=== PATIENT | female | born 1965 | race Caucasian/White ===

== ENCOUNTER 2017-02-09 07:59 | Emergency (ER) | payer MEDICAID ==
[~2017-02-09] VITALS: Ht 167.6 cm; Wt 77.0 kg
[2017-02-09 08:01] VITALS: BP 113/60
[2017-02-09] MEDS: PERMETHRIN 5% CREAM 60GM TOP ONE (10:33)
== END 2017-02-09 10:34 | disposition home or self-care (01) ==
LOC: ER 08:15
DX: B86 Scabies (principal); F17.200 Nicotine dependence, unspecified, uncomplicated; Z88.0 Allergy status to penicillin
CPT/HCPCS: 99283

== ENCOUNTER 2017-03-20 13:59 | Emergency (ER) | payer MEDICAID ==
[~2017-03-20] VITALS: Ht 162.6 cm; Wt 85.0 kg
[2017-03-20] MEDS ORDERED: ACETAMINOPHEN 325MG TABLET PO STA (20:35)
[2017-03-21 14:57] VITALS: BP 128/81
== END 2017-03-21 14:59 | disposition home or self-care (01) ==
LOC: ER 14:09
DX: Z04.8 Encounter for examination and observation for other specified reasons (principal); Z88.0 Allergy status to penicillin; Z59.0 Homelessness; Z98.51 Tubal ligation status
CPT/HCPCS: 81025; 99283